=== PATIENT | female | born 1990 | race Caucasian/White ===

== ENCOUNTER 2019-11-10 19:45 | Emergency (ER) | payer OTHER, SELFPAY ==
--- NOTE | 2019-11-10 19:48 | ED.URI ---
HPI - URI/Sore Throat General Chief Complaint: Upper Respiratory Infection Stated Complaint: sore throat Time Seen by Provider: 11/10/19 19:48 Source: patient and RN notes reviewed History of Present Illness HPI Narrative: Patient is a 29-year-old female who presents the urgent care with complaints of a sore throat. Patient states that it started 2 days ago and she wanted to make sure she did not have strep. 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 Denies any fever, chills, nausea, vomiting, cough. Patient has not taken anything [id number] for her symptoms. Patient states that she does have postnasal drainage from allergies at times. No other acute complaints. No acute distress noted. Patient read the plan of care. Related Data Home Medications Medication Instructions Recorded Confirmed [id number] 1 PO DAILY 11/10/19 [Daily ] Allergies Allergy/AdvReac Type Severity Reaction Status Date / Time No Known Allergies Allergy Verified 11/10/19 20:04 Review of Systems Review of Systems: Narrative: CONSTITUTIONAL: Denies fever, chills, or sweats. EYES: Denies visual changes, redness, or discharge. ENT: Reports of sore throat and drainage CARDIOVASCULAR: Denies chest pain, palpitations, or edema. RESPIRATORY: Denies cough or dyspnea. GASTROINTESTINAL: Denies abdominal pain, nausea, vomiting, or diarrhea. GENITOURINARY: Denies dysuria or hematuria. SKIN: Denies rash or itching. MUSCULOSKELETAL: Denies back pain, joint pain, or myalgia. NEUROLOGIC: Denies headache, numbness, or weakness. All other systems reviewed are negative, except as documented in HPI. PMFSH Comments At the time of my signature, I reviewed and agree with the nursing past medical, surgical, social, and family history. There is no relevant family history pertinent to the patient complaint. Exam Narrative: Exam Narrative: GENERAL: This is a well-nourished, well-developed patient, in no apparent distress. HEAD: normocephalic, atraumatic. EYES: PERRL. Sclera clear/white. Vision is grossly intact. EARS: External ears normal, auditory canals clear and without drainage, TMs normal without perforation. Hearing grossly intact. NOSE: External nose normal with no obvious nasal discharge, nares without redness, no rhinorrhea. THROAT: Mucous membranes moist, moderate erythema noted posterior oropharynx with clear postnasal drainage NECK: Neck supple, non-tender without lymphadenopathy SKIN: warm, intact with no suspicious lesions or rash, good texture and turgor. NEURO: awake, alert, and oriented to person, place and time. There were no obvious focal neurologic abnormalities. EXTREMITIES: No clubbing, cyanosis, or edema. Course Vital Signs Vital signs: Vital Signs Temperature 98.0 F 11/10/19 19:55 Pulse Rate 73 11/10/19 19:55 Respiratory Rate 20 11/10/19 19:55 Blood Pressure 132/86 11/10/19 19:55 Pulse Oximetry 99 11/10/19 19:55 Temperature 98.0 F 11/10/19 19:55 Pulse Rate 73 11/10/19 19:55 Respiratory Rate 11/10/19 19:55 Blood Pressure 132/86 11/10/19 19:55 Pulse Oximetry 99 11/10/19 19:55 Reviewed MDM - URI/Sore Throat MDM Narrative Medical decision making narrative: Reviewed lab results with the patient. She is aware that strep swab was negative. Educated her on culture we will call within 72 hours if culture is positive and antibiotics are necessary. Advised the patient to use Claritin and Flonase as needed for postnasal drainage and sinus relief. Do not sleep with the windows open. If you develop any increase in symptoms associated with fever, dry cough, nausea, vomiting?follow-up in the emergency room or obtain COVID testing. Follow-up with your PCP within 2 to 5 days or for worsening symptoms or failure to improve. Differential Diagnosis Differential diagnosis: Likely upper respiratory infection, otitis media, sinusitis, viral infection,
[2019-11-10 19:55] VITALS: BP 132/86; PULSE 73; RESP 20; TEMP 36.7; O2SAT 99
== END 2019-11-10 20:05 | disposition home or self-care (01) ==
PROVIDERS: Emergency Provider Nurse Practitioner Family; PCP Internal Medicine
DX: J02.9 Acute pharyngitis, unspecified (principal)
CPT/HCPCS: 87081; 87880; 99203; G0463

== ENCOUNTER 2021-01-15 15:53 | Emergency (ER) | payer SELFPAY ==
[2021-01-15 15:58] VITALS: BP 119/71; PULSE 80; RESP 14; TEMP 37.4; O2SAT 100
[2021-01-15 16:10] VITALS: BP 119/71; PULSE 80; RESP 14; TEMP 37.4; O2SAT 100
--- NOTE | 2021-01-15 16:16 | ED.URI ---
HPI - URI/Sore Throat General Chief Complaint: Upper Respiratory Infection Stated Complaint: sinus problems Time Seen by Provider: 01/15/21 16:10 Source: patient Mode of arrival: ambulatory Limitations: no limitations History of Present Illness HPI Narrative: Dior San is a 30 yo female with c/o URI x 2 weeks of stuffy nose, snus and ear pressure - has been seen by pcp x 2 during time and told to treat symptoms as allergies, today sent for bloodwork and chest Xray but labs not available for days. pt wants an antibiotic Related Data Home Medications Medication Instructions Recorded Confirmed fluticasone propionate [Allergy 2 spray INTRANASAL DAILY 01/15/21 01/15/21 Relief (fluticasone)] Allergies Allergy/AdvReac Type Severity Reaction Status Date / Time No Known Allergies Allergy Verified 01/15/21 16:09 Review of Systems Review of Systems: CONSTITUTIONAL: Denies fever, chills, sweats. EYES: Denies visual changes, redness, discharge. ENT: Denies rhinorrhea, has congestion, sore throat, has otalgia. CARDIOVASCULAR: Denies chest pain, palpitations, edema. RESPIRATORY: Denies dyspnea, wheezing, cough GASTROINTESTINAL: Denies abdominal pain, nausea, vomiting, diarrhea. GENITOURINARY: Denies dysuria, hematuria, abnormal discharge SKIN: Denies rash or itching. NEUROLOGIC: Denies numbness, or focal weakness. PSYCHIATRIC: Denies anxiety or depression. [facility] Past Medical History Medical History (Updated 01/15/21 @ 16:51 by Radha Lyons CNP) No acute medical problems Family History Family History Other No acute medical problems Social History Social History (Updated 01/15/21 @ 16:35 by Radha Lyons CNP) Smoking status: Never smoker Alcohol intake: current Comments At time of signature, I agree with nursing past medical, surgical, social and family history. There is no relevant family history pertinent to the presenting complaint. Exam Narrative: GENERAL: This is a well-nourished, well-developed patient, in moderate distress. HEAD: normocephalic, atraumatic. EYES: Sclera clear/white. Vision is grossly intact. EARS: External ears normal, auditory canals clear, mild erythema on R, and without drainage, TMs normal without perforation. Hearing grossly intact. NOSE: External nose normal without nasal discharge, nares without redness, no rhinorrhea. THROAT: Mucous membranes moist, posterior pharynx erythema, no exudate NECK: Neck supple, non-tender CARDIOVASCULAR: Regular rate and rhythm without murmurs, gallops, or rubs. RESPIRATORY: Clear to auscultation. Breath sounds equal bilaterally. No wheezes, rales, or rhonchi. GASTROINTESTINAL: Abdomen soft, non-tender, SKIN: warm, intact with no suspicious lesions or rash, good texture and turgor. NEURO: awake, alert, and oriented to person, place and time. There were no obvious focal neurologic abnormalities. Steady gait EXTREMITIES: Normal range of motion. BACK: Nontender without deformity Course Course Emergency Course: Patient has been seen by PCP x2 this week and is here with complaints of increasing pressure in head ears, she has been taking Flonase only. She had blood work done and chest x-ray ordered by her PCP today however her lungs sound clear Patient started on prednisone-60 mg given here and 40 mg x 5 days along with lidocaine swish and swallow on Tessalon Perljessica Vital Signs Vital signs: Vital Signs Temperature 99.3 F 01/15/21 15:58 Pulse Rate 80 01/15/21 15:58 Respiratory Rate 14 01/15/21 15:58 Blood Pressure 119/71 01/15/21 15:58 Pulse Oximetry 100 01/15/21 15:58 Temperature 99.3 F 01/15/21 16:10 Pulse Rate 80 01/15/21 16:10 Respiratory Rate 14 01/15/21 16:10 Blood Pressure 119/71 01/15/21 16:10 Pulse Oximetry 100 01/15/21 16:10 MDM - URI/Sore Throat Lab Data Labs: Lab Results 01/15/21 Range/Units 16:05 POC [facility]
[2021-01-15] MEDS: predniSONE 20 MG TABLET 60 MG PO (17:07)
== END 2021-01-15 17:10 | disposition home or self-care (01) ==
PROVIDERS: Emergency Provider Nurse Practitioner; PCP Internal Medicine
DX: J40 Bronchitis, not specified as acute or chronic (principal); J01.10 Acute frontal sinusitis, unspecified; Z20.822 Contact with and (suspected) exposure to COVID-19
CPT/HCPCS: 87081; 87426; 87880; 99213; C9803; G0463; J7512